=== PATIENT | female | born 1935 | race Hispanic/Latino ===

== ENCOUNTER 2024-01-24 22:34 | Inpatient (IN) | payer MEDICARE ==
[2024-01-24] MEDS ORDERED: hydrALAZINE 20 MG/ML VIAL ONE (23:42)
[2024-01-25 00:58] LABS: #Basophils 0.04 10x3/uL (0.0-0.2); %Basophils 0.5 % (0.0-1.0); %Eosinophils 1.3 % (0.0-10.0); %Lymphocytes 30.5 % (21.0-51.0); %Monocytes 5.3 % (0.0-10.0); %Neutrophils 62.1 % (42.0-75.0); Hematocrit 35.5 % (36.0-47.0); Hemoglobin 11.3 g/dL (12.0-16.0); Mean Corpuscular HGB CONC 31.8 g/dL (32.0-36.0); Mean Corpuscular Hemoglobin 25.5 pg (27.0-31.0); Mean Corpuscular Volume 80.1 fL (78.0-98.0); Mean Platelet Volume 10.1 fL (7.4-10.4); Platelet Count 229 10x3/uL (130-400); RBC Distribution Width 19.2 % (11.5-14.5); Red Blood Cell (RBC) Count 4.43 mill/uL (4.20-5.40)
[2024-01-25 01:37] LABS: ALT (SGPT) Less than 5 U/L (8-55); AST (SGOT) 17 U/L (5-34); Alkaline Phosphatase 76 U/L (40-110); Anion Gap 11 mmol/L (10-20); BUN (Urea Nitrogen) 14 mg/dL (9.8-20.1); Bilirubin, Total 0.5 mg/dL (0.2-1.2); Calc. Creatinine Clearance 0 mL/min (70-130); Carbon Dioxide 22 mmol/L (23-31); Chloride 108 mmol/L (98-107); Estimated GFR 63; Globulin 3.7 g/dL (2.4-3.5); Glucose 104 mg/dL (83-110); Lipase 46 U/L (8-78); Magnesium 1.8 mg/dL (1.6-2.6); Potassium 3.9 mmol/L (3.5-5.1); Protein, Total 6.7 g/dL (5.8-8.1); Sodium 137 mmol/L (136-145)
[2024-01-25 01:39] LABS: Troponin I 0.027 ng/mL (< 0.028)
[2024-01-25] MEDS ORDERED: Ondansetron PF 4 MG/2 ML Vial IVP PRN (01:48)
[2024-01-25] MEDS ORDERED: Acetaminophen 650 MG Suppository PR PRN (01:48)
[2024-01-25] MEDS ORDERED: Ondansetron ODT 4 MG TAB PO PRN (01:48)
[2024-01-25 02:47] VITALS: BMI 28.8
[2024-01-25] MEDS: hydrALAZINE 20 MG/ML VIAL SLOW IVP SCH (03:18)
[2024-01-25] MEDS: Dextrose 5%-Lactated Ringers 1,000 ML IV SCH (03:19)
[2024-01-25] MEDS ORDERED: Ipratropium/Albuterol 3 ML NEB NEB PRN (04:29)
[2024-01-25 06:10] LABS: #Basophils 0.05 10x3/uL (0.0-0.2); %Basophils 0.6 % (0.0-1.0); %Eosinophils 3.3 % (0.0-10.0); %Lymphocytes 34.6 % (21.0-51.0); %Monocytes 7.8 % (0.0-10.0); %Neutrophils 53.5 % (42.0-75.0); Hematocrit 34.1 % (36.0-47.0); Hemoglobin 10.7 g/dL (12.0-16.0); Mean Corpuscular HGB CONC 31.4 g/dL (32.0-36.0); Mean Corpuscular Hemoglobin 25.1 pg (27.0-31.0); Mean Platelet Volume 10.6 fL (7.4-10.4); Platelet Count 212 10x3/uL (130-400); RBC Distribution Width 19.3 % (11.5-14.5); Red Blood Cell (RBC) Count 4.26 mill/uL (4.20-5.40)
[2024-01-25] MEDS: Acetaminophen 325 MG TAB PO PRN (06:10)
[2024-01-25] MEDS: hydrALAZINE 20 MG/ML VIAL SLOW IVP PRN (06:38)
[2024-01-25 06:57] LABS: Anion Gap 16 mmol/L (10-20); BUN (Urea Nitrogen) 15 mg/dL (9.8-20.1); Calc. Creatinine Clearance 54 mL/min (70-130); Calcium 8.8 mg/dL (7.8-10.44); Carbon Dioxide 17 mmol/L (23-31); Chloride 110 mmol/L (98-107); Estimated GFR 65; Glucose 101 mg/dL (83-110); Hemoglobin A1c 5.9 % (4.0-6.0); Potassium 3.6 mmol/L (3.5-5.1); Sodium 139 mmol/L (136-145)
[2024-01-25] MEDS ORDERED: Non-Formulary Item 1 EACH (Ferrous Gluconate [Ferrous Gluconate] 324 MG Tablet) PO SCH (09:00)
[2024-01-25] MEDS ORDERED: Lisinopril 10 MG TAB PO SCH (09:00)
[2024-01-25] MEDS ORDERED: Non-Formulary Item 1 EACH (Losartan Potassium [Losartan Potassium] 100 MG Tablet) PO SCH (09:00)
[2024-01-25] MEDS: Losartan 25 MG TAB PO SCH (09:29)
[2024-01-25] MEDS: Rosuvastatin 5 MG TAB PO SCH (09:29)
[2024-01-25] MEDS: Furosemide 20 MG TAB PO SCH (09:29)
[2024-01-25] MEDS: Famotidine/PF 20 mg/2ml Vial SLOW IVP SCH (09:30)
[2024-01-25] MEDS: Allopurinol 100 MG TAB PO SCH (09:30)
[2024-01-25] MEDS: predniSONE 5 MG TAB PO SCH (09:30)
[2024-01-25] MEDS: Famotidine 20 MG TAB PO SCH (09:32)
[2024-01-25] MEDS: Ferrous Gluconate 324 MG TAB PO SCH (09:32)
[2024-01-26] MEDS ORDERED: CEFAZOLIN 2 GM VIAL ONE (06:29)
[2024-01-26] MEDS ORDERED: CEFAZOLIN 1 GM VIAL ONE (06:29)
[2024-01-26] MEDS ORDERED: Gentamicin 80 MG/2 ML VIAL ONE (06:29)
[2024-01-26] MEDS ORDERED: Lidocaine 1% (PF) 30 ML VIAL ONE (06:30)
[2024-01-26 06:36] LABS: #Basophils 0.04 10x3/uL (0.0-0.2); %Basophils 0.5 % (0.0-1.0); %Eosinophils 1.1 % (0.0-10.0); %Lymphocytes 26.6 % (21.0-51.0); %Monocytes 7.5 % (0.0-10.0); %Neutrophils 64.2 % (42.0-75.0); Hematocrit 34.8 % (36.0-47.0); Hemoglobin 10.7 g/dL (12.0-16.0); Mean Corpuscular HGB CONC 30.7 g/dL (32.0-36.0); Mean Corpuscular Hemoglobin 25.5 pg (27.0-31.0); Mean Corpuscular Volume 82.9 fL (78.0-98.0); Mean Platelet Volume 10.5 fL (7.4-10.4); Platelet Count 245 10x3/uL (130-400); RBC Distribution Width 19.9 % (11.5-14.5)
[2024-01-26] MEDS ORDERED: fentaNYL 50 mcg/mL 1 mL Vial ONE (07:05)
[2024-01-26] MEDS ORDERED: Midazolam HCl 2 mg/2 ml Vial ONE (07:05)
[2024-01-26 07:07] LABS: Anion Gap 9 mmol/L (10-20); BUN (Urea Nitrogen) 17 mg/dL (9.8-20.1); Calc. Creatinine Clearance 36 mL/min (70-130); Calcium 8.8 mg/dL (7.8-10.44); Carbon Dioxide 26 mmol/L (23-31); Chloride 110 mmol/L (98-107); Estimated GFR 39; Glucose 114 mg/dL (83-110); Magnesium 1.7 mg/dL (1.6-2.6); Potassium 3.9 mmol/L (3.5-5.1); Sodium 141 mmol/L (136-145)
[2024-01-26] MEDS ORDERED: hydrALAZINE 20 MG/ML VIAL ONE (07:23)
[2024-01-26] MEDS ORDERED: Iopamidol 370 76% 100 ML VIAL ONE (13:08)
[2024-01-27] MEDS: HYDROcodone/Acetaminophen 5/325 mg Tablet PO PRN (00:05)
[2024-01-27] MEDS: Amlodipine 5 MG TAB PO SCH (09:52)
[2024-01-27] MEDS: Furosemide 40 MG (4 mL) VIAL SLOW IVP SCH (11:31)
[2024-01-27 12:25] VITALS: TEMP 97.8
[2024-01-27 14:55] VITALS: BP 181/77
== END 2024-01-27 17:56 | disposition home or self-care (01) | DRG 244 ==
LOC: ERS 22:34 → IMCU/EMU 01-25 00:58
PROVIDERS: ADMIT Student in an Organized Health Care Education/Training Program; ATTEND Internal Medicine
PROC: 0JH606Z Insertion of Pacemaker, Dual Chamber into Chest Subcutaneous Tissue and Fascia, Open Approach (ICD-10-PCS; principal; 2024-01-27)
PROC: 02H63JZ Insertion of Pacemaker Lead into Right Atrium, Percutaneous Approach (ICD-10-PCS; 2024-01-27)
PROC: 02HK3JZ Insertion of Pacemaker Lead into Right Ventricle, Percutaneous Approach (ICD-10-PCS; 2024-01-27)
DX: R00.1 Bradycardia, unspecified (principal); E11.9 Type 2 diabetes mellitus without complications; G47.00 Insomnia, unspecified; K21.9 Gastro-esophageal reflux disease without esophagitis; I44.1 Atrioventricular block, second degree; F20.9 Schizophrenia, unspecified; D64.9 Anemia, unspecified; M1A.9XX0 Chronic gout, unspecified, without tophus (tophi); M19.90 Unspecified osteoarthritis, unspecified site; E78.5 Hyperlipidemia, unspecified; J84.112 Idiopathic pulmonary fibrosis; E87.70 Fluid overload, unspecified; I27.20 Pulmonary hypertension, unspecified; I10 Essential (primary) hypertension; Z90.49 Acquired absence of other specified parts of digestive tract; Z90.710 Acquired absence of both cervix and uterus; Z79.52 Long term (current) use of systemic steroids; Z99.81 Dependence on supplemental oxygen
CPT/HCPCS: 33208; 36415; 71045; 80048; 83036; 83690; 83735; 83880; 84443; 85025; 93005; 93010; 93306; 93798; 96374; C1785; C1898; J0360; J0690; J1580; J1940; J2001; J2250; J3010; J7512; S0028